=== PATIENT | female | born 1980 | race African-American/Black ===

== ENCOUNTER 2017-11-30 18:21 | Emergency (ER) | payer SELFPAY ==
[2017-11-30 19:49] LABS: APPEARANCE,URINE SLIGHTLY-CLOUDY; BILIRUBIN,URINE NEGATIVE (NEGATIVE); COLOR,URINE YELLOW; GLUCOSE, URINE NEGATIVE (NEGATIVE); KETONES,URINE NEGATIVE (NEGATIVE); LEUKOCYTE ESTERASE,URINE SMALL (NEGATIVE); NITRITE,URINE NEGATIVE (NEGATIVE); PROTEIN,URINE NEGATIVE (NEGATIVE); URINE SPECIFIC GRAVITY 1.023
--- NOTE | 2017-11-30 20:26 | ER Document Report ---
ED General - General Chief Complaint: Urinary Frequency Stated Complaint: URINARY PROBLEM Time Seen by Provider: 11/30/17 19:21 Mode of Arrival: Ambulatory Information source: Patient TRAVEL OUTSIDE OF THE [place] IN LAST 30 DAYS: No - HPI Notes: 36 yr old female presents today with complaints of dysuria x 2 days with noted vaginal secretions smelling like "BBQ" per patient. reports pain si 4/10, burning. reports he had unprotected sex 1 month ago. denies any sores or discharge. denies fevers and chills. denies taking any otc medications. states it is progressive. Reports she has not been using protection with sexual intercourse with her partner. Denies any other abdominal pain, chest pain, shortness of breath, nausea, vomiting, blurred vision, double vision, loss of vision. Reports he did have sexual activity with a partner last week, did not wear any protection or use any barrier methods. - Related Data Allergies/Adverse Reactions: No Known Allergies Allergy (Verified 11/30/17 18:22) Past Medical History - General Information source: Patient - Social History Smoking Status: Never Smoker Chew tobacco use (# tins/day): No Frequency of alcohol use: None Drug Abuse: None Family History: Reviewed & Not Pertinent Patient has suicidal ideation: No Patient has homicidal ideation: No Renal/ Medical History: Denies: Hx Peritoneal Dialysis - Immunizations Hx Diphtheria, Pertussis, Tetanus Vaccination: Yes Review of Systems - Review of Systems Constitutional: No symptoms reported EENT: No symptoms reported Cardiovascular: No symptoms reported Respiratory: No symptoms reported Gastrointestinal: No symptoms reported Genitourinary: See HPI Female Genitourinary: No symptoms reported Musculoskeletal: No symptoms reported Skin: No symptoms reported Hematologic/Lymphatic: No symptoms reported Neurological/Psychological: No symptoms reported Physical Exam - Vital signs Vitals: Temp Pulse Resp BP Pulse Ox 98.9 F 82 16 122/51 L 100 11/30/17 18:25 11/30/17 18:25 11/30/17 18:25 11/30/17 18:25 11/30/17 18:25 Interpretation: Normal - Notes Notes: PHYSICAL EXAMINATION: GENERAL: Well-appearing, well-nourished and in no acute distress. HEAD: Atraumatic, normocephalic. EYES: Pupils equal round and reactive to light, extraocular movements intact, conjunctiva are normal. ENT: Nares patent, oropharynx clear without exudates. Moist mucous membranes. NECK: Normal range of motion, supple without lymphadenopathy LUNGS: Breath sounds clear to auscultation bilaterally and equal. No wheezes rales or rhonchi. HEART: Regular rate and rhythm without murmurs ABDOMEN: Soft, nontender, nondistended abdomen. No guarding, no rebound. No masses appreciated. Female : deferred Musculoskeletal: Normal range of motion, no pitting or edema. No cyanosis. NEUROLOGICAL: Cranial nerves grossly intact. Normal speech, normal gait. Normal sensory, motor exams PSYCH: Normal mood, normal affect. SKIN: Warm, Dry, normal turgor, no rashes or lesions noted. Course - Re-evaluation Re-evalutation: Patient treated with azithromycin 1 g and Rocephin 250 mg IM for treatment of chlamydia and gonorrhea. She will be treated outpatient for Trichomonas, do not drink taking Flagyl. Will treat for UTI as well. Advised to follow-up with [facility], PCP or [facility] for further STD testing. Pt verbalizes that understands the risks that come with having unprotected sex. discussed safe sex, using protection. advised to have protected sex always, go to PCP for blood testing., etc. patient to follow-up with hand specialist for chronic hand pain. pt verbalized understanding of these instructions. - Vital Signs Vital signs: Temp Pulse Resp BP Pulse Ox 98.9 F 82 16 122/51 L 100 11/30/17 18:25 11/30/17 18:25 11/30/17 18:25 11/30/17 18:25 11/30/17 18:25 - Laboratory Laboratory results interpreted by me: 11/30/17 19:30 Urine Urobilinogen 4.0 H Ur Leukocyte Esterase SMALL H Discharge - Discharge Clinical Impression: Bacterial vaginosis UTI (urinary tract infection) Qualifiers: Urinary tract infection type: acute cystitis Hematuria presence: without hematuria Qualified Code(s): N30.00 - Acute cystitis without hematuria Condition: Good Disposition: HOME, SELF-CARE Instructions: Trimethoprim-Sulfa ([facility]), Urinary Anesthetic Agent ([facility]), Urinary Tract Infection ([facility]), Urinary Tract Infection, Child ([facility]), Metronidazole ([facility]), Trichomonas Infection ([facility]), Vaginosis, Bacterial ([facility]) Prescriptions: Metronidazole [Flagyl 500 mg Tablet] 500 mg PO BID #14 tablet Phenazopyridine HCl [Pyridium] 200 mg PO TIDP PRN #9 tablet PRN Reason: Sulfamethoxazole/Trimethoprim [Bactrim Ds Tablet] 1 each PO BID #20 tablet Forms: Parent Work Note Referrals: YASSINE TAYLOR MD [ACTIVE STAFF] - Follow up in 3-5 days MANUEL NICHOLS MD [COMMUNITY BASED STAFF] - Follow up in 3-5 days
[2017-11-30 20:38] LABS: BACTERIA (WET MOUNT) 3+ BACTERIA SEEN; EPITHELIALS (WET MOUNT) 3+ EPITHELIALS SEEN; RBCS (WET MOUNT) RARE RBCS SEEN; T.VAGINALIS (WET MOUNT) TRICHOMONAS SEEN; WBCS (WET MOUNT) 1+ WBCS SEEN; YEAST (WET MOUNT) NO YEAST SEEN
[2017-11-30] MEDS ORDERED: METRONIDAZOLE 500 MG TABLET PO ONE (20:47)
[2017-11-30] MEDS ORDERED: AZITHROMYCIN 1 GM SUSP PACKET PO ONE (20:51)
[2017-11-30 21:30] VITALS: BP 136/76
[2017-11-30 22:48] LABS: CHLAM PCR NOT DETECTED (NOT DETECT); GON PCR NOT DETECTED (NOT DETECT)
== END 2017-11-30 21:28 | disposition home or self-care (01) ==
LOC: ER 18:21
DX: N30.00 Acute cystitis without hematuria (principal); N76.0 Acute vaginitis; B96.89 Other specified bacterial agents as the cause of diseases classified elsewhere
CPT/HCPCS: 99283; 87210; 81001; 87491; 87591; Q0144